=== PATIENT | male | born 2000 | race Caucasian/White ===

== ENCOUNTER 2020-02-10 13:28 | Emergency (ER) | payer MEDICAID, SELFPAY ==
[~2020-02-10 13:28] MED LIST: Sodium Chloride 0.9% 1,000 ML BAG ONE; Sodium Chloride 0.9% 500 ML BAG ONE; Sodium Chloride Irrig Solution 250 ML BOT ONE
[2020-02-10] MEDS ORDERED: Ampicillin/Sulbactam 3 GM VIAL ONE (13:38)
[2020-02-10] MEDS ORDERED: Adacel (T-DAP) 0.5 ML SYRINGE ONE (13:38)
[2020-02-10] MEDS ORDERED: Sodium Chloride 0.9% 100 ML ONE (13:38)
[2020-02-10] MEDS ORDERED: Fentanyl 100 MCG/2 ML VIAL ONE (13:40)
[2020-02-10 13:52] LABS: #Basophils 0.2 thou/uL (0.0-0.2); #Eosinphils 0.6 thou/uL (0.0-0.7); #Lymphocytes 4.5 thou/uL (1.20-3.40); #Monocytes 0.8 thou/uL (0.11-0.59); %Basophils 1.7 % (0.0-1.0); %Eosinophils 4.6 % (0.0-10.0); %Lymphocytes 34.1 % (28.0-48.0); %Monocytes 6.3 % (0.0-4.0); %Neutrophils 53.3 % (31.0-61.0); Hemoglobin 13.2 g/dL (14.0-18.0); Mean Corpuscular HGB CONC 31.8 g/dL (32.0-36.0); Mean Corpuscular Hemoglobin 27.1 pg (25.0-35.0); Mean Corpuscular Volume 85.4 fL (78.0-98.0); Mean Platelet Volume 7.1 fL (7.4-10.4); Platelet Count 346 thou/uL (130-400); RBC Distribution Width 12.6 % (11.5-14.5); Red Blood Cell (RBC) Count 4.87 mill/uL (4.00-5.20); White Blood Cell (WBC) Count 13.2 thou/uL (4.8-10.8)
[2020-02-10 13:56] LABS: INR-International Normal Ratio 1.1; PTT 25.8 sec (22.9-36.1); Prothrombin Time 14.3 sec (12.0-14.7)
[2020-02-10 14:06] LABS: ALT (SGPT) 11 U/L (8-55); AST (SGOT) 12 U/L (5-34); Albumin 4.8 g/dL (3.5-5.0); Alkaline Phosphatase 90 U/L (50-130); Anion Gap 17 mmol/L (10-20); BUN (Urea Nitrogen) 14 mg/dL (8.9-20.6); Bilirubin, Total 0.6 mg/dL (0.2-1.2); Calc. Creatinine Clearance 0 mL/min (70-130); Calcium 9.1 mg/dL (7.8-10.44); Carbon Dioxide 21 mmol/L (22-29); Chloride 106 mmol/L (98-107); Estimated GFR-MDRD Greater than 90; Glucose 138 mg/dL (70-105); Protein, Total 7.8 g/dL (6.0-8.3); Sodium 141 mmol/L (136-145)
[2020-02-10] MEDS ORDERED: Ondansetron PF 4 MG/2 ML Vial ONE (14:06)
--- NOTE | 2020-02-10 14:19 | CT ---
Exam: Head CT without contrast HISTORY: Trauma. Cutting grass and mower threw object into patient's right side of the face. COMPARISON: none FINDINGS: Hemorrhage: No intraparenchymal hemorrhage or extra-axial hematoma. Brain parenchyma: Cortical ayers-white matter differentiation is preserved. No mass effect or midline shift. Basilar cisterns are patent. Ventricular system: Ventricles and sulci are patent and symmetric. Calvarium: Intact. Sinuses and mastoid air cells: Adequate aeration. Facial soft tissues and facial bones: Nondisplaced fracture involving the anterior right zygomatic vineet ne. 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 No radiopaque foreign body. Mild edema in volving the masseter and temporalis muscles. Right globe has an abnormal appearance and is presumed to be posttraumatic in nature. IMPRESSION: 1. No intracranial post traumatic sequelae 2. Post traumatic changes involving the right face as described above. 3. Abnormal appearing right globe, presumed to be posttraumatic in nature Transcribed Date/Time: 02/10/2020 5:58 PM
[2020-02-10] MEDS ORDERED: Potassium Chloride 20 MEQ/100 ML PREMIX BAG ONE (14:27)
--- NOTE | 2020-02-10 19:06 | CT ---
CT FACIAL BONES WITH CONTRAST: 02/10/20 INDICATIONS: Trauma to right side of face. FINDINGS: Soft tissue windows show skin and soft tissue disruption involving the right face over the right zygo ma and zygomatic maxillary junction. There is gas within the soft tissues at this site of disruption. No evidence of radiopaque soft tissue foreign body identified. Review of osseous structures show fractures of the right zygoma at the right zygomatic frontal suture . No significant displacement. Nasal bones appear intact. Orbits appear intact. Lamina papyracea intact. The paranasal sinuses are well aerated. The maxilla appears intact. Mandible appears intact. IMPRESSION: Soft tissue disruption of the right face. The soft tissue disruption is located over the right zygoma . There is fracture of the right zygoma without significant displacement. POS: [facility]
== END 2020-02-10 14:39 | disposition short-term general hospital (02) ==
LOC: MADERS 13:28
DX: S01.81XA Laceration without foreign body of other part of head, initial encounter (principal); S05.71XA Avulsion of right eye, initial encounter; E87.6 Hypokalemia; Z23 Encounter for immunization; W22.8XXA Striking against or struck by other objects, initial encounter
CPT/HCPCS: 70450; 70487; 80053; 85025; 85610; 85730; 90471; 90715; 96365; 96375; J0295; J2405; J3010; J3480; J3490; J7030; J7050

== ENCOUNTER 2023-01-21 13:09 | Emergency (ER) | payer OTHER, SELFPAY | END 2023-01-21 14:10 | disposition home or self-care (01) | LOC: MADERS 13:09 | DX: S05.91XA Unspecified injury of right eye and orbit, initial encounter (principal); X58.XXXA Exposure to other specified factors, initial encounter | CPT/HCPCS: 99283 ==

== ENCOUNTER 2024-08-27 13:31 | Emergency (ER) | payer SELFPAY ==
[2024-08-27] MEDS ORDERED: Ibuprofen 800 MG TAB ONE (14:49)
== END 2024-08-27 16:00 | disposition home or self-care (01) ==
LOC: MADERS 13:31
DX: B34.9 Viral infection, unspecified (principal); Z55.6 Problems related to health literacy
CPT/HCPCS: 99283